=== PATIENT | male | born 1985 | race Caucasian/White ===

== ENCOUNTER 2016-10-23 14:57 | Emergency (ER) | payer MEDICAID, OTHER ==
[2016-10-23] MEDS ORDERED: LITHIUM CARBON600 M1 PO (15:34)
[2016-10-23] MEDS ORDERED: WELLBUTRIN SR100 M2 PO (15:34)
[2016-10-23] MEDS ORDERED: ATIVAN1 M2 PO (16:00)
== END 2016-10-23 16:34 ==
LOC: EDMED 14:57
DX: F31.9 Bipolar disorder, unspecified (principal); F41.9 Anxiety disorder, unspecified; Z79.899 Other long term (current) drug therapy; F17.200 Nicotine dependence, unspecified, uncomplicated

== ENCOUNTER 2016-10-24 12:40 | Emergency (ER) | payer MEDICAID, OTHER ==
[~2016-10-24 12:40] MED LIST: ATIVAN1 M2 PO; LITHIUM CARBON600 M1 PO; WELLBUTRIN SR100 M2 PO
== END 2016-10-24 15:39 ==
LOC: EDMED 12:40
DX: F31.9 Bipolar disorder, unspecified (principal); Z59.0 Homelessness; F17.210 Nicotine dependence, cigarettes, uncomplicated